=== PATIENT | male | born 1960 | race Caucasian/White ===

== ENCOUNTER → 2022-08-04 | Outpatient (CLI) | payer MEDICARE, OTHER ==
--- NOTE | 2022-08-04 08:53 | US ---
EXAMINATION TYPE: US abdomen complete DATE OF EXAM: 08/04/2022 COMPARISON: NONE CLINICAL INDICATION: Male, 62 years old with history of R10.13 EPIGASTRIC PAIN; Patient states having pain after eating. No prior surgeries. TECHNIQUE: Multiple sonographic images of the abdomen are obtained. FINDINGS: EXAM MEASUREMENTS: Liver Length: 17.7 cm Gallbladder Wall: 0.2 cm CBD: 0.6 cm Spleen: 13.0 cm Right Kidney: 9.7 x 5.0 x 5.3 cm Left Kidney: 10.8 x 4.7 x 5.2 cm EDITORIAL ASSISTANT NOTES: Limited due to overlying bowel gas Pancreas: Obscured by bowel gas Liver: Upper limits of normal Gallbladder: wnl Evidence for sonographic Del Toro's sign: neg CBD: wnl Spleen: Upper limits of normal Right Kidney: No hydronephrosis or masses seen Left Kidney: No hydronephrosis or masses seen Upper IVC: wnl Abd Aorta: Proximal and mid portion obscured by overlying bowel gas The liver is homogenous. The intrahepatic portion of the IVC and proximal abdominal aorta are within normal limits. There is no evidence of cholelithiasis. Common bile duct is unremarkable. The visu alized portions of the pancreas are homogenous. The spleen is unremarkable. Kidneys are symmetric a nd free of hydronephrosis. No renal lesions are seen. IMPRESSION: No discrete abnormality seen.
--- NOTE | 2022-08-04 10:12 | FL ---
EXAMINATION TYPE: FL UGI DATE OF EXAM: 08/04/2022 9:21 AM COMPARISON: NONE CLINICAL HISTORY: Difficulty in swallowing. A total of 68 seconds of fluoroscopic time was utilized during procedure and 16 images obtained. DAP 1648.64 Preliminary view of the abdomen reveals a normal bowel gas pattern. Upper GI examination was performed according to the air contrast technique. Barium and effervescent crystal was swallowed without difficulty or delay. Esophageal peristalsis and motility are within no rmal limits. There is no evidence for esophagitis, intraluminal mass, or hiatal hernia. Mild gastroe sophageal reflux noted. The stomach has a normal appearance in terms of its size, shape and location. No gastric filling defects or ulcer craters are seen. The duodenal bulb and sweep are also free of intraluminal lesion or ulcer crater. IMPRESSION: Mild gastroesophageal reflux without esophagitis.
== END | disposition home or self-care (01) ==
LOC: RADUSWWP 07:21
PROVIDERS: ATTEND Family Medicine
DX: K21.9 Gastro-esophageal reflux disease without esophagitis (principal); R10.13 Epigastric pain
CPT/HCPCS: 74240; 76700